=== PATIENT | female | born 1975 | race Caucasian/White ===

== ENCOUNTER 2019-07-10 09:11 | Outpatient (CLI) | payer OTHER, SELFPAY ==
[2019-07-10 09:29] LABS: Basophils Absolute Auto 0.07 K/mm3 (0.00-0.10); Basophils Percent Auto 0.8 % (0.0-1.0); Eosinophils Absolute Auto 0.25 K/mm3 (0.02-0.50); Hematocrit 40.5 % (35.0-49.0); Hemoglobin 13.5 g/dL (12.0-15.0); Immature Granulocyte Absolute 0.02 K/mm3 (0.00-0.00); Immature Granulocyte Percent A 0.2 % (0.0-0.0); Lymphocytes Absolute Auto 2.75 K/mm3 (1.10-4.50); Lymphocytes Percent Auto 32.9 % (18.0-42.0); Mean Corpuscular HGB Conc 33.3 g/dL (32.0-36.0); Mean Platelet Volume 8.6 fl (9.2-11.8); Monocytes Absolute Auto 0.51 K/mm3 (0.10-0.90); Monocytes Percent Auto 6.1 % (2.0-11.0); Neutrophils Absolute Auto 4.8 K/mm3 (1.7-7.2); Platelet Count Result 402 K/mm3 (150-420); Red Blood Count 4.82 M/mm3 (4.20-5.40); Red Cell Distribution Width 13.3 % (11.6-14.4); White Blood Count 8.4 K/mm3 (4.8-10.8)
[2019-07-10 09:39] LABS: Hemoglobin A1C 6.6 % (<5.7)
[2019-07-10 11:05] LABS: Alanine Aminotransferase 23 U/L (14-59); Albumin Level 4.1 g/dL (3.4-5.0); Alkaline Phosphatase 69 U/L (46-116); Anion Gap 16.6 mmol/L (7-16); Aspartate Amino Transferase 17 U/L (15-37); Bilirubin,Total 0.3 mg/dL (0.00-1.00); Blood Urea Nitrogen 12 mg/dL (7-18); Calcium 9.1 mg/dL (8.5-10.1); Carbon Dioxide 23 mmol/L (21-32); Chloride 103 mmol/L (98-108); Cholesterol 167 mg/dL (0-200); Estimated Glomerular Filt Rate > 60; Folic Acid 17.4 ng/mL (8.6->20); Glucose 128 mg/dL (70-99); HDL Direct 39 mg/dL (40-60); LDL Cholesterol Calculated 109 mg/dL (<130); Lipase 97 U/L (73-393); Osmolality Calculated 287 mOsm/kg (285-295); Potassium 4.6 mmol/L (3.5-5.1); Sodium 138 mmol/L (136-145); Thyroid Stimulating Hormone 1.36 uIU/mL (0.36-3.74); Total Protein 7.2 g/dL (6.4-8.2); Triglycerides 94 mg/dL (0-150); Vitamin B12 295 pg/mL (193-986)
[2019-07-10 11:41] LABS: Add Urine Microscopic? YES; Appearance Urine Clear (Clear); Bilirubin Urine Negative (Negative); Blood Urine Negative (Negative); Color Urine Yellow (Yellow); Glucose Urine UA 1+ (Negative); Ketones Urine Negative (Negative); Leukocyte Esterase Ur Negative LEU/UL (Negative); Nitrate Urine Negative (Negative); Protein Urine Negative (Negative); Specific Grav Ur <= 1.005 (1.010-1.020); Urobilinogen Urine 0.2 mg/dL (0.2-1.0); pH Urine 5.5 (5.0-8.0)
[2019-07-10 11:47] LABS: Bacteria Urine None seen /hpf; RBC Urine 0-2 /hpf (0-2); Squamous Epithelial Cell Urine Occasional /hpf (Few); WBC Urine 0-3 /hpf (0-3)
[2019-07-10 11:48] LABS: Creatinine Urine 28.16 mg/dL (40-278); MALB Creatinine Ratio 13.4 mg/g (0-30); Microalbumin Urine Random 3.8 mg/L
== END 2019-07-10 09:12 | disposition home or self-care (01) ==
LOC: CHSLAB 09:15
PROVIDERS: PCP Physician Assistant; Visit Provider Physician Assistant
DX: R10.9 Unspecified abdominal pain (principal); E11.9 Type 2 diabetes mellitus without complications; R53.83 Other fatigue
CPT/HCPCS: 36415; 80053; 80061; 81001; 82043; 82607; 82746; 83036; 83690; 84443; 85025

== ENCOUNTER 2019-07-14 10:02 | Outpatient (CLI) | payer OTHER, SELFPAY ==
--- NOTE | ~2019-07-14 | CT_ITS ---
EXAMINATION: CT abdomen pelvis wo con DATE: 07/14/2019 10:51 INDICATION: Right lower quadrant and left lower quadrant abdominal pain intermittent over past 6 lizzie hs TECHNIQUE: Computed tomography (CT) of the abdomen and pelvis was performed without intravenous contr ast. Automated exposure control and iterative reconstruction technique were employed. Exam dose: 654 .27 mGy-cm total exam DLP. COMPARISON: 08/13/2016 CT abdomen pelvis with IV contrast material FINDINGS: The lung bases are clear. Normal heart size. Coronary artery calcifications. No pericardial or pleural effusion. The liver, gallbladder, bile duct, spleen, pancreas and pancreatic duct and adrenal glands are normal . No renal mass lesion. No urinary tract calculus or hydroureteronephrosis. Normal caliber of the abdominal aorta. No intraperitoneal or retroperitoneal or pelvic mass lesion or adenopathy or ascites. The uterus and adnexal areas are unremarkable. Status post bilateral tubal li gation. Diverticulosis of the colon; no CT evidence of diverticulitis. Normal appendix. No bowel obstruction, bowel wall thickening, pneumatosis or intraperitoneal free air. Small fat-containing umbilical hernia. IMPRESSION: Diverticulosis of the colon; no CT evidence of diverticulitis Normal appendix Reviewed, dictated and finalized at [facility]. Reviewed, dictated and finalized at location B.
== END 2019-07-14 10:03 | disposition home or self-care (01) ==
PROVIDERS: PCP Physician Assistant; Visit Provider Physician Assistant
DX: R10.9 Unspecified abdominal pain (principal)
CPT/HCPCS: 74176

== ENCOUNTER 2020-03-14 08:53 | Outpatient (CLI) | payer OTHER, SELFPAY ==
--- NOTE | ~2020-03-14 | US_ITS ---
EXAMINATION: US right upper quadrant EXAM DATE: 03/14/2020 09:15 INDICATION: R10.11 - Right upper quadrant pain . TECHNIQUE: Multiple grayscale and Doppler images of the abdomen right upper quadrant were obtained (b y a technologist who performed the scan) and subsequently reviewed. Comparison is made to prior exami nation from 08/14/2016. FINDINGS: The pancreatic head and body are normal in appearance. The pancreatic tail is not visualized. The l iver has normal echogenicity and contour. There are no focal liver lesions identified. There is no evidence of intrahepatic biliary duct dilation. Portal venous flow was seen in the hepatopedal, nor mal direction and has normal Doppler waveform. No right-sided hydronephrosis. Common bile duct measures 3 mm, which is normal. The gallbladder wall is normal in thickness, with ex pected amount of distention. No sonographic evidence of pericholecystic fluid. There is no cholelit hiases. Technologist performing exam reports patient did not demonstrate sonographic Bush's sign. Please note that this sign is less reliable in patients who have received pain medication. IMPRESSION: 1. Unremarkable abdominal ultrasound exam. Reviewed, dictated and finalized at location A. 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
[2020-03-14 09:54] LABS: Lipase 83 U/L (73-393)
[2020-03-15 06:31] LABS: Alanine Aminotransferase 25 U/L (14-59); Albumin Level 3.9 g/dL (3.4-5.0); Alkaline Phosphatase 69 U/L (46-116); Anion Gap 9 mmol/L (8-16); Aspartate Amino Transferase 17 U/L (15-37); Bilirubin,Total 0.3 mg/dL (0.00-1.00); Blood Urea Nitrogen 8 mg/dL (7-18); Calcium 9.2 mg/dL (8.5-10.1); Carbon Dioxide 27 mmol/L (21-32); Chloride 106 mmol/L (98-108); Estimated Glomerular Filt Rate > 60; Glucose 116 mg/dL (70-99); Hemoglobin A1C 6.6 % (<5.7); Osmolality Calculated 293 mOsm/kg (285-295); Potassium 4.8 mmol/L (3.5-5.1); Sodium 142 mmol/L (136-145)
== END 2020-03-14 08:54 | disposition home or self-care (01) ==
PROVIDERS: PCP Physician Assistant; Visit Provider Physician Assistant
DX: R10.11 Right upper quadrant pain (principal); E11.9 Type 2 diabetes mellitus without complications; R10.9 Unspecified abdominal pain
CPT/HCPCS: 36415; 76705; 80053; 83036; 83690

== ENCOUNTER 2020-04-05 11:28 | Outpatient (CLI) | payer OTHER, SELFPAY ==
[2020-04-05 12:18] LABS: SARS-CoV-2 Ag Positive (Negative)
== END 2020-04-05 11:29 | disposition home or self-care (01) ==
PROVIDERS: PCP Physician Assistant; Visit Provider Clinical Nurse Specialist
DX: U07.1 COVID-19 (principal)
CPT/HCPCS: 87426

== ENCOUNTER 2020-05-05 15:36 | Outpatient (CLI) | payer OTHER, SELFPAY ==
--- NOTE | ~2020-05-05 | MM_ITS ---
EXAMINATION: MM screening chas BI w ag HISTORY: Screening TECHNIQUE: Craniocaudal and mediolateral oblique 3-D tomosynthesis images were obtained and synthetic 2-D images were generated. CAD analysis was submitted and interpreted. COMPARISON: Comparison to multiple prior studies sequentially, with oldest reviewed study dated 06/2014. BREAST PARENCHYMAL COMPOSITION: The breasts are heterogeneously dense, which may obscure small masses . FINDINGS: There is no evidence of suspicious mass, calcification, or architectural distortion to sugg est malignancy in either breast. There has been no suspicious interval change. IMPRESSION: 1. No mammographic evidence of malignancy. 2. Recommend routine screening mammography in one year. BI-RADS Category 1: Negative Reviewed, dictated and finalized at location A. K CHOPPER HAND
== END 2020-05-05 15:37 | disposition home or self-care (01) ==
LOC: ANHIMG 15:41
PROVIDERS: PCP Physician Assistant; Visit Provider Nurse Practitioner
DX: Z12.31 Encounter for screening mammogram for malignant neoplasm of breast (principal)
CPT/HCPCS: 77063; 77067

== ENCOUNTER 2020-07-28 09:16 | Outpatient (CLI) | payer OTHER, SELFPAY ==
[2020-07-28 09:36] LABS: Hemoglobin A1C 6.4 % (<5.7)
[2020-07-28 10:04] LABS: Hematocrit 40.3 % (35.0-49.0); Hemoglobin 13.1 g/dL (12.0-15.0); Mean Corpuscular HGB Conc 32.5 g/dL (32.0-36.0); Mean Corpuscular Volume 86.1 fL (78.0-102.0); Mean Platelet Volume 8.9 fl (9.2-11.8); Platelet Count Result 414 K/mm3 (150-420); Red Blood Count 4.68 M/mm3 (4.20-5.40); Red Cell Distribution Width 13.3 % (11.6-14.4); White Blood Count 7.5 K/mm3 (4.8-10.8)
[2020-07-28 10:32] LABS: Alanine Aminotransferase 28 U/L (14-59); Albumin Level 3.7 g/dL (3.4-5.0); Alkaline Phosphatase 71 U/L (46-116); Anion Gap 10 mmol/L (8-16); Aspartate Amino Transferase 24 U/L (15-37); Bilirubin,Total 0.4 mg/dL (0.00-1.00); Blood Urea Nitrogen 7 mg/dL (7-18); Calcium 9.3 mg/dL (8.5-10.1); Carbon Dioxide 27 mmol/L (21-32); Chloride 103 mmol/L (98-108); Cholesterol 151 mg/dL (0-200); Estimated Glomerular Filt Rate > 60; Folic Acid 17.1 ng/mL (8.6->20); Glucose 121 mg/dL (70-99); HDL Direct 38 mg/dL (40-60); LDL Cholesterol Calculated 84 mg/dL (<130); Osmolality Calculated 289 mOsm/kg (285-295); Potassium 4.4 mmol/L (3.5-5.1); Sodium 140 mmol/L (136-145); Thyroid Stimulating Hormone 1.31 uIU/mL (0.36-3.74); Total Protein 6.9 g/dL (6.4-8.2); Triglycerides 143 mg/dL (0-150); Vitamin B12 234 pg/mL (193-986)
== END 2020-07-28 09:17 | disposition home or self-care (01) ==
LOC: CHSLAB 09:19
PROVIDERS: PCP Physician Assistant; Visit Provider Physician Assistant
DX: Z00.00 Encounter for general adult medical examination without abnormal findings (principal); E11.9 Type 2 diabetes mellitus without complications
CPT/HCPCS: 36415; 80053; 80061; 82607; 82746; 83036; 84443; 85027

== ENCOUNTER 2020-08-09 08:19 | Inpatient (IN) | payer OTHER, SELFPAY ==
[2020-08-09] VITALS (50 sets, daily range): BP systolic 86–129; BP diastolic 57–96; PULSE 50–100; RESP 12–21; TEMP 36.3–36.8; O2SAT 91–100; BMI 28.3
--- NOTE | ~2020-08-09 | XR_ITS ---
EXAMINATION: XR chest 1V portable EXAM DATE: 08/09/2020 08:58 INDICATION: Upper chest pain, intermittent. Diabetic. TECHNIQUE: Portable AP frontal chest x-ray was obtained. Comparison is made to prior examination from 08/14/2016. FINDINGS: The lungs are clear. There are no pleural effusions. The cardiomediastinal silhouette is within normal limits. There is no pneumothorax suspected. The bones and soft tissues are unremarkab le. IMPRESSION: No acute cardiopulmonary findings. Reviewed, dictated and finalized at location A.
--- NOTE | ~2020-08-09 | CT_ITS ---
EXAMINATION: CTA chest abdomen pelvis EXAM DATE: 08/09/2020 10:20 INDICATION: Chest pain radiating to back, r/o dissection. TECHNIQUE: Spiral CT of the chest, abdomen and pelvis was performed following intravenous injection o f 100 mL Omnipaque 350. Axial, coronal and sagittal images chest, abdomen and pelvis were reviewed. Coronal maximum intensity pixel images of chest reviewed. Maximum intensity projection 3-D reconstru ctions of the aorta were created by the technologist on dedicated workstation. The dose-length produ ct (DLP) for this examination was 1119.04 mGy-cm. The exposure was tailored according to patient siz e (auto mA exposure control), and iterative reconstruction (ASIR) was used as additional dose reducti on technique. Comparison is made to prior examination from 07/14/2019. FINDINGS: ARTERIES: There is normal aortic caliber, no dissection or arteriosclerotic disease. There is no shweta riosclerosis or stenosis of the renal, mesenteric arteries. There is an accessory smaller left renal artery. No pulmonary emboli suspected. CHEST: Dependent subsegmental atelectasis. No confluent consolidation, pneumothorax or pleural effus ion suspected. Tracheobronchial tree is patent. There is no mediastinal, hilar or axillary lymp hadenopathy. Heart normal in size. No evidence of coronary arterial calcification. ABDOMEN PELVIS: There is hepatic steatosis without suspicious focal lesion identified. Spleen, adrena l glands, pancreas are unremarkable. Gallbladder is unremarkable. No biliary obstruction. Portal a nd splenic veins are patent. Kidneys enhance symmetrically. There is no hydronephrosis. The uteru s is unremarkable. Right ovary has dominant follicle. The bladder is unremarkable. There is a retro peritoneal lymph node left side of the pelvic inlet measuring 10 x 12 mm, is unchanged compared to pr evious exam and likely reactive. The appendix is normal. There is mild scattered colonic diverticulosis. There is no adjacent inflamm atory change to suggest diverticulitis. The stomach and small bowel are unremarkable. There is expec brijesh amount of colonic stool. No free intraperitoneal gas. The bones are unremarkable. IMPRESSION: 1. No acute chest, abdomen or pelvis findings. Normal aorta. 2. Mild colonic diverticulosis. 3. Hepatic steatosis. Reviewed, dictated and finalized at location A.
--- NOTE | 2020-08-09 08:41 | ECG_ITS ---
Measurements Intervals [place] Rate: 58 P: 13 UT: 157 QRS: 13 QRSD: 79 T: 58 QT: 436 QTc: 432 Interpretive Statements SINUS BRADYCARDIA LOW QRS VOLTAGE IN PRECORDIAL LEADS BASELINE ARTIFACT- I, III, AVR, AVL BORDERLINE ECG Electronically Signed On 08-09-2020 9:11:22 CDT by Mike Ruiz D.O.
[2020-08-09 08:49] LABS: Basophils Absolute Auto 0.1 K/mm3 (0.0-0.1); Basophils Percent Auto 0.5 % (0.2-1.2); Eosinophils Absolute Auto 0.2 K/mm3 (0-0.3); Eosinophils Percent Auto 2.2 % (0-4.4); Hematocrit 39.9 % (37.0-47.0); Hemoglobin 13.1 g/dL (12.0-15.0); Immature Granulocyte Absolute 0.06 K/mm3 (0.00-0.031); Immature Granulocyte Percent A 0.6 % (0-0.5); Lymphocytes Percent Auto 23.7 % (18.3-44.2); Mean Corpuscular HGB Conc 32.8 g/dl (32-36); Mean Corpuscular Hemoglobin 28.5 pg (26-34); Mean Corpuscular Volume 86.7 fl (80-100); Mean Platelet Volume 9.2 fl (7.4-10.4); Monocytes Absolute Auto 0.6 K/mm3 (0.1-0.6); Monocytes Percent Auto 6.5 % (2.6-8.5); Neutrophils Absolute Auto 6.5 K/mm3 (1.3-6.7); Neutrophils Percent Auto 66.5 % (45.5-73.1); Platelet Count Result 314 k/mm3 (150-375); Red Cell Distribution Width 13.8 % (11.5-14.5); White Blood Count 9.7 K/mm3 (4.5-10.0)
--- NOTE | 2020-08-09 08:54 | ED.CHESTPAIN ---
HPI - Chest Pain General Chief Complaint: Chest Pain Stated Complaint: chest pain since friday Time Seen by Provider: 08/09/20 08:25 Source: patient, RN notes reviewed and old records reviewed Mode of arrival: ambulatory Limitations: no limitations History of Present Illness HPI narrative: This is 45 year old female with history of hypertension, DM who presents for evaluation of chest pain and sob. She developed chest pressure across her chest pain Friday night. She reports her pain was constant until she went to bed on Friday. Her pain restarted on Friday evening after she finished work. She also states her pain moved to right upper chest pain and she is sob. This morning she denies having chest pain but she does reports weakness, dizziness, nausea and shortness of breath. She feels like it is difficulty to take a deep breath. She denies history DVT, PE. Denies leg swelling, calf pain. MD complaint: chest pain Related Data Home Medications Medication Instructions Recorded Confirmed cetirizine 10 mg tablet 10 mg PO DAILY 02/19/19 08/09/20 duloxetine 30 mg capsule,delayed 30 mg PO DAILY 02/19/19 08/09/20 release duloxetine 60 mg capsule,delayed 60 mg PO DAILY 02/19/19 08/09/20 release dulaglutide [Trulicity] 0.75 mg SUBCUT WEEKLY 08/09/20 08/09/20 gabapentin 900 mg PO TID 08/09/20 08/09/20 Allergies Allergy/AdvReac Type Severity Reaction Status Date / Time Bumble Bee Allergy Mild Anaphylaxis Uncoded 08/09/20 08:28 Review of Systems Review of Systems: All systems reviewed & are unremarkable except as noted in HPI and below Constitutional: Constitutional: Reports fatigue Cardiovascular: Cardiovascular: Reports chest pain and Reports radiating jaw, neck or arm pain Respiratory: Respiratory: Denies cough and Reports dyspnea Gastrointestinal: Gastrointestinal: Denies abdominal pain, Denies diarrhea, Reports nausea and Denies vomiting Musculoskeletal: Musculoskeletal: Reports back pain Neurologic: Reports dizziness and Reports weakness PMFSH Past Medical History Medical History (Updated 08/09/20 @ 15:49 by Elisa Jacob MD) Crohn disease Depression Diabetes mellitus Hyperlipidemia Hypertension Surgical History Surgical History H/O tubal ligation Family History Family History Mother Patient's mother is in good health Father Family history of type 1 diabetes mellitus Social History Social History Smoking status: Never smoker Second hand tobacco smoke exposure: No Alcohol intake: never Gender identity (if verbalized by the patient): Female Spiritual care concerns: No Exam Const: General: no acute distress and alert Orientation/consciousness: patient oriented x3 Eyes: EOM: EOMs intact bilaterally Resp: Effort & Inspection: normal respiratory effort and no retractions Auscultation: clear to auscultation bilaterally Cardio: Rate: regular rate Rhythm: regular rhythm Heart sounds: no murmurs GI: GI Palp: Yes Soft to palpation, No Tenderness to palpation present (GI) and No Guarding due to palpation present (GI) Auscultation: normal bowel sounds Back/Spine/Pelvis: Back: no CVA tenderness Skin: General skin exam: normal color Rashes: no rashes Neuro: General: patient oriented x3, moves all extremities and CN's II-XI intact bilaterally Psych: Mental Status: mental status grossly normal Affect: normal affect Course Reevaluation(s) Reevaluation #1: Patient states she feels better. She denies sob. She reports she developed chest pressure after receiving IV contrast. Pain is subsiding. Date: 08/09/20 Time: 10:35 Reevaluation #2: Dr. Sorensen is at bedside. He will take patient to lab head. She has been given aspirin 324 mg on arrival. She will be started on heparin and given metoprolol PO. P
[2020-08-09] MEDS: METOCLOPRAMIDE HCL INJ 10 MG/2 ML VIAL IV PUSH (08:55)
[2020-08-09] MEDS: ASPIRIN 81 MG CHEWABLE TABLET 324 MG PO (08:55)
[2020-08-09] MEDS: LACTATED RINGERS 1,000 ML 999 ML IV CONT ×3 (08:55→09:52)
[2020-08-09 09:13] LABS: Alanine Aminotransferase 39 U/L (4-35); Albumin Level 3.8 g/dL (3.5-5.1); Alkaline Phosphatase 66 U/L (38-126); Aspartate Amino Transferase 41 U/L (14-36); Bilirubin,Total 0.2 mg/dL (0.2-1.3); Lipase 66 U/L (23-300)
[2020-08-09 09:14] LABS: Lactic Acid Reflex 3.2 mmol/L (0.7-2.1)
[2020-08-09 09:24] LABS: INR 0.8
[2020-08-09 09:32] LABS: D Dimer 0.27 ug/mL (<0.48)
[2020-08-09 09:33] LABS: Partial Thromboplastin Time < 20.0 SECONDS (22.3-36.8)
[2020-08-09 09:48] LABS: Anion Gap 8 mmol/L (8-16); Blood Urea Nitrogen 10 mg/dL (7-17); Calcium 8.4 mg/dL (8.4-10.2); Carbon Dioxide 25 mmol/L (22-30); Chloride 103 mmol/L (98-107); Estimated CRCL calculation 95 ml/min; Estimated Glomerular Filt Rate > 60; Glucose 185 mg/dL (65-105); Potassium 4.3 mmol/L (3.4-5.0); Sodium 136 mmol/L (137-145)
[2020-08-09 10:03] LABS: Troponin I 0.302 ng/mL (0.000-0.034)
--- NOTE | 2020-08-09 10:20 | PC.NURSE ---
return from ct. pt continues to c/o chest pain. sr on monitor with depressed st segments.
--- NOTE | 2020-08-09 10:33 | ECG_ITS ---
Measurements Intervals [place] Rate: 84 P: 32 [place]: 161 QRS: 38 QRSD: 84 T: 99 QT: 371 QTc: 440 Interpretive Statements SINUS RHYTHM ST-T WAVE ABNORMALITY IN HIGH LATERAL LEADS- CONSIDER ISCHEMIA ABNORMAL ECG Electronically Signed On 08-09-2020 11:00:00 CDT by Mike Ruiz D.O.
[2020-08-09] MEDS: HEPARIN SODIUM 5,000 UNITS/ML VIAL 4000 UNITS IV PUSH (11:12)
[2020-08-09] MEDS: HEPARIN SOD/D5W 100 UNITS/ML 25,000 UNITS/250 ML BAG 8 UNITS IV CONT (11:13)
[2020-08-09] MEDS: METOPROLOL TARTRATE 50 MG TAB 25 MG PO (11:16)
[2020-08-09] MEDS: NITROGLYCERIN OINTMENT 1 INCH DOSE TRANSDERM (11:17)
--- NOTE | 2020-08-09 11:35 | PC.NURSE ---
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 cp now 11/21. heparin drip infusing without difficulty
[2020-08-09 12:04] LABS: Reflex Lactic Acid Yes or No Add Lactic
--- NOTE | 2020-08-09 12:35 | ECG_ITS ---
Measurements Intervals [place] Rate: 52 P: 32 [place]: 148 QRS: 44 QRSD: 79 T: 78 QT: 472 QTc: 441 Interpretive Statements SINUS BRADYCARDIA BORDERLINE ST-T WAVE ABNORMALITY- ANT/HIGH LAT LEADS BASELINE ARTIFACT- I, III, AVR, AVL, AVF BORDERLINE ECG Electronically Signed On 08-09-2020 16:09:28 CDT by Mike Ruiz D.O.
--- NOTE | 2020-08-09 12:40 | WPDCARDPROC ---
Cardiac Cath Procedure Note Date of procedure:: 08/09/20 Performing physician:: Vince Sorensen MD Indication:: acute coronary syndrome Brief clinical history:: this is a 45-year-old woman with diabetes and dyslipidemia who presents the emergency room with several days of intermittent ischemic sounding chest pain ECG in the emergency room demonstrates some dynamic inferolateral ST segment depression and lateral T-wave inversion. Troponin level was 0.3. In this setting urgent angiography is recommended in be performed at this time Procedure Procedure performed:: left ventriculography coronary angiography PCI (DIONICIO) to the proximal right coronary artery Sedation/Medication given:: fentanyl 25 mg Versed 2 mg case start time 11:55 a.m. case end time 12:20 p.m. 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 Anesthesia was provided with 1% lidocaine infiltrated locally. Using the modified Seldinger technique the femoral artery was punctured and a 6 [place]i vascular sheath was placed. Next I used a 5 [place] angled pigtail catheter to hemodynamics, pullback pressures across the aortic valve and to inject an LV g in the 30 degree US projection. Following this I used a 5 [place] JR4 catheter to inject the right coronary artery and then a 5 [place] FL4 catheter to inject the left coronary artery in multiple projections. The cine angiograms were then reviewed and PCI of the proximal right coronary artery was recommended and carried out as detailed below. Prior to PCI the patient was given 180 mg of oral Brilinta and a bolus and drip of Angiomax for procedural anticoagulation. She had a ready been given aspirin in the emergency department. The intervention was then carried out as detailed below. Following PCI the sheath was sutured into position patient was taken to ICU room 6. For post UT PCI recovery. Procedure was uncomplicated and she left the labor employment associate with no evidence of a groin hematoma. Findings:: Hemodynamics: Central aortic pressure was 104 over 64 left ventricle 104/10 end-diastolic pressure of 20 there is no systolic gradient on pullback across the aortic valve. Left ventricle: The LV is normal in size the infero posterior segment is akinetic the remainder of the LV contracts well the global ejection fraction is 45%. The left main coronary artery is a large caliber vessel with mild plaquing of about 30% stenosis in the distal 3rd of the left main. The left anterior descending is a moderate caliber artery extending down to around the apex. The LAD has an ostial stenosis of at least 70-80% followed by a 95% stenosis in the midportion of the vessel. Distal to this there is no additional significant disease in the LAD. Collateral filling can be seen from the LAD to the RPDA. The circumflex is a moderate caliber artery giving rise to the marginal branch is the circumflex has minimal luminal irregularities but no flow-limiting disease is identified. The right coronary artery is a large caliber vessel dominant to the posterior circulation. It is 100% occluded in the proximal portion with minimal flow distal to the occluded segment. Intervention: The right coronary was engaged using a standard 6 [place]i JR4 guiding catheter the occlusion was easily crossed using a 0.014 BMW coronary guidewire. The lesion was pre-dilated with a 3 x 20 mm emerge PTCA balloon. The vessel then had FAYE 3 flow down to the terminal branches following that balloon inflation. The area of disease was relatively long from the proximal segment of occlusion down into the 2nd portion of the RCA. I then chose to deploy a 3.5 by 35 mm Orsiro drug-eluting stent to the entire area of disease in the RCA
--- NOTE | 2020-08-09 12:49 | PM.IMHP ---
H&P: HPI History of Present Illness Date/Time: 08/09/20 12:49 Chief Complaint: chest pain Narrative: this is a 45-year-old woman I am seeing in the emergency room at the request of the ER physicians because of concern regarding acute coronary syndrome. She is not previously known to have any cardiac problems but is been feeling unwell since Friday afternoon. She describes waxing and waning episodes of pressure-like retrosternal chest pain associated with shortness of breath and this morning had more intense pain associated with shortness of breath and diaphoresis. She finally presented to the emergency room several hours ago. Her initial ECG was essentially normal. She was referred to radiology to rule out a pulmonary embolism when she came back of subsequent EKG was done demonstrating some precordial anterolateral and inferior ST segment changes that which were the initial tracing. Troponin was measured at 0.3. In this setting I was asked to see the patient and consider urgent angiography. She says she has a history of diabetes and Crohn's disease and receives her primary care with Dr. Barton. Review of Systems Review of Systems: ROS unobtainable: Yes unobtainable due to medical condition [facility] Past Medical History Medical History (Updated 08/09/20 @ 08:56 by Elisa Jacob MD) Crohn disease Depression Diabetes mellitus Hyperlipidemia Hypertension Surgical History Surgical History (Updated 08/09/20 @ 08:56 by Elisa Jacob MD) H/O tubal ligation Family History Family History Mother Patient's mother is in good health Father Family history of type 1 diabetes mellitus Social History Social History Smoking status: Never smoker Second hand tobacco smoke exposure: No Alcohol intake: never Meds Home Medications and Allergies Home Medications Medication Instructions Recorded Confirmed Type blood sugar diagnostic #10 each 02/19/19 07/02/20 History blood sugar diagnostic #10 each 02/19/19 07/02/20 History cetirizine 10 mg tablet 10 mg PO DAILY 02/19/19 07/02/20 History duloxetine 30 mg capsule,delayed 30 mg PO DAILY 02/19/19 07/02/20 History release duloxetine 60 mg capsule,delayed 60 mg PO DAILY 02/19/19 07/02/20 History release lancets 28 gauge #25 each 02/19/19 07/02/20 History dulaglutide 0.75 mg/0.5 mL 0.75 mg SUB-Q WEEKLY #2 ml 02/04/20 07/02/20 Rx subcutaneous pen injector olmesartan 20 mg tablet 20 mg PO DAILY #90 tablet 06/28/20 07/02/20 Rx pravastatin 20 mg tablet 20 mg PO DAILY #90 tablet 07/04/20 Rx metformin 500 mg tablet 1,000 mg PO BID #360 tablet 07/24/20 Rx dulaglutide [Trulicity] 0.75 mg SUBCUT WEEKLY 08/09/20 History gabapentin 900 mg PO TID 08/09/20 History Allergies Allergy/AdvReac Type Severity Reaction Status Date / Time Bumble Bee Allergy Mild Anaphylaxis Uncoded 08/09/20 08:28 Vital Signs Vital Signs - 24 hr 08/09/20 08:25 08/09/20 08:36 08/09/20 08:45 Temperature Pulse Rate 61 59 L 60 Respiratory Rate 16 17 13 Blood Pressure 95/70 L Pulse Oximetry 97 08/09/20 08:46 08/09/20 08:49 08/09/20 09:00 Temperature Pulse Rate 61 71 68 Respiratory Rate 16 15 13 Blood Pressure 86/71 L 97/68 L Pulse Oximetry 100 08/09/20 09:01 08/09/20 09:11 08/09/20 09:15 Temperature Pulse Rate 73 64 63 Respiratory Rate 13 12 14 Blood Pressure 89/65 L 87/57 L Pulse Oximetry 99 95 100 08/09/20 09:31 08/09/20 09:45 08/09/20 10:00 Temperature 36.3 C L Pulse Rate 81 81 77 Respiratory Rate 19 13 13 Blood Pressure 90/66 L Pulse Oximetry 96 98 96 08/09/20 10:18 08/09/20 10:21 08/09/20 10:34 Temperature Pulse Rate 81 79 96 Respiratory Rate 12 16 21 H Blood Pressure 118/81 Pulse Oximetry 08/09/20 10:45 08/09/20 11:00 08/09/20 11:01 Temperature Pulse Rate 79 91 91 Respiratory Rate 16 18 12
[2020-08-09] MEDS: SODIUM CHLORIDE 0.9% IV 1,000 ML 125 ML IV CONT (13:22)
--- NOTE | 2020-08-09 13:27 | WPDCNINT ---
Assessment and Plan Assessment and plan (1) Acute coronary syndrome: Code(s): I24.9 - Acute ischemic heart disease, unspecified Status: Acute Assessment and Plan: Patient presented with chest pain Subsequent EKG did demonstrate some ST-T changes in the inferior leads. 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 - Continue aspirin, Brilinta, losartan, metoprolol, statin (2) Diabetes mellitus: Code(s): E11.9 - Type 2 diabetes mellitus without complications Status: Acute Assessment and Plan: Accucheks and SII (3) Essential hypertension: Code(s): I10 - Essential (primary) hypertension Status: Acute Assessment and Plan: Borderline blood pressures, hold antihypertensives for now (4) Crohn's disease: Code(s): K50.90 - Crohn's disease, unspecified, without complications Status: Acute Assessment and Plan: No diarrhea, abdominal pain, N/V at this time Will continue to monitor Additional Plan D/w pt and her , and updated them with her condition and plan of care. Code status: Full Code Critical Care time spent: 41 minutes This dictation may have been done utilizing a voice recognition system. Attempts have been made to correct errors. However, there may be uncorrected grammatical, spelling, and recognition errors present. Due to a high probability of clinically significant, life threatening deterioration, the patient required my highest level of preparedness to intervene emergently and I personally spent this critical care time directly and personally managing the patient. This critical care time included obtaining a history; examining the patient; pulse oximetry; ordering and review of studies; arranging urgent treatment with development of a management plan; evaluation of patient's response to treatment; frequent reassessment; and discussions with other providers. It was exclusive of separately billable procedures and treating other patients and teaching time. Please see Assessment and Plan section and the rest of the note for further information on patient assessment and treatment Vascular Neurologist Consult Note Consult date: 08/09/20 Time Seen: 13:15 Reason for consult: Chest pain, STEMI, status post cardiac catheterization with DIONICIO x1 to proximal RCA, EF 45% HPI: Sonia Abad is a 45 year old female with past medical history of Crohn's disease, depression, diabetes, hyperlipidemia, essential hypertension presented the ED 08/09/2020 with complains of chest pain that started on 08/06, waxing and waning, pressure-like retrosternal pain associated shortness of breath, diaphoresis. In the ED initial EKG was normal, she had CTA chest to rule out pulmonary embolism which was negative. Subsequent EKG did demonstrate some ST-T changes in the inferior leads. 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 Patient also has an LAD ostial stenosis of 70-80% followed by a 95% stenosis in the midportion of the vessel. Patient was transferred to the ICU post cardiac catheterization. Patient seen examined the ICU. Denies any chest pain, SOB, N/V or abdominal pain. Pt states she is thirsty. Pt denies tobacco use, illicit drug use and alcohol use.hemodynamically stable Review of Systems Review of Systems: All systems reviewed & are unremarkable except as noted in HPI and below PMFSH Past Medical History Medical History (Updated 08/09/20 @ 13:41 by Philip Montague MD) Crohn disease Depression Diabetes mellitus Hyperlipidemia Hypertension Surgical History Surgical History (Updated 08/09/20 @ 08:56 by Elisa Jacob MD) H/O tubal ligation Family History Family History (Reviewed 06/28/20 @ 09:48 by Jesus Baires
[2020-08-09 14:04] LABS: Lactic Acid 1.7 mmol/L (0.7-2.1)
[2020-08-09 14:04] LABS: Cholesterol 128 mg/dL (0-200); HDL Direct 37 mg/dL; Triglycerides 145 mg/dL (<150)
[2020-08-09 14:15] LABS: LDL Cholesterol Direct 68 mg/dL
--- NOTE | 2020-08-09 15:03 | ADMGEN ---
This patient, Sonia Abad, was admitted to Intensive Care Unit-6. Patient/family oriented to hospital policies and general routines including ID bracelet, bed and alarms, visiting hours, pain management, procedures, bathroom and other care routines, personal items, smoking policy, room service/diet, and visiting hours. Information on how to activate the Rapid Response Team has been discussed. Patient/Family are encouraged to report perceived risks to care and to ask questions if they do not understand what they are told or what they should do.
--- NOTE | 2020-08-09 15:03 | PM.IMCN ---
Assessment and Plan Assessment and plan (1) Crohn's disease: Code(s): K50.90 - Crohn's disease, unspecified, without complications Status: Chronic Assessment and Plan: Chronic and stable patient denies any diarrhea or abdominal pains or cramps (2) Essential hypertension: Code(s): I10 - Essential (primary) hypertension Status: Acute Assessment and Plan: BP is 99/70 sp heart catheterization continue to monitor. Restart Bp medications, when Bp is better (3) Acute coronary syndrome: Code(s): I24.9 - Acute ischemic heart disease, unspecified Status: Acute Assessment and Plan: Sp heart catherisation, pt found to have total occlusion of proximal RCA status post DIONICIO x1 to proximal RCA, EF was 45% on heart catheterization. Sheath to remove continue to monitor. Treat with aspirin, Brilinta, losartan, metoprolol, statin (4) Diabetes mellitus: Code(s): E11.9 - Type 2 diabetes mellitus without complications Status: Acute Assessment and Plan: Accuchecks, SSI, continue patients home medications (5) Overweight (BMI 25.0-29.9): Code(s): E66.3 - Overweight Status: Chronic Assessment and Plan: Discussion about weight loss and lifestyle changes. (6) Depression: Code(s): F32.9 - Major depressive disorder, single episode, unspecified Status: Inactive Assessment and Plan: Continue antidepressants. HPI Data of Consult Consult date: 08/09/20 Requesting Physician: Vince Sorensen MD Primary Care Provider: Jesus Jones PA-C Consult Narrative Narrative: CC: CHEST PAIN Sonia Abad is a 45 year old female history of HTN, DM and Crohns disease. Pt admitted with chest pain seen by cardiology already sp urgent heart cath. Pt had elevated troponin at 0.3 and abnormal second EKG showing anterolateral and inferior ST segments changes on admission. Pt was found to have total occlusion of proximal RCA status post DIONICIO x1 to proximal RCA, EF was 45% on heart catheterization. Pt is now in ICU post heart cath. Pt states she had severe chest pain this morning like a chest pressure 10/10 associated with sweat and nausea. Pt had been having chest pain on/off since friday night. Pt has a strong family history of CAD, her grandmother and mother has stents and CABG. Pt had CT chest abdomen and pelvis earlier which was negative. Pts Cxr is negative. Labs are good. Hospitalist consulted for medical management for DM, HTN and Crohns. Review of Systems Review of Systems: All systems reviewed & are unremarkable except as noted in HPI and below PMFSH Past Medical History Medical History (Updated 08/09/20 @ 15:27 by Candida Carcamo MD) Crohn disease Depression Diabetes mellitus Hyperlipidemia Hypertension Surgical History Surgical History H/O tubal ligation Family History Family History Mother Patient's mother is in good health Father Family history of type 1 diabetes mellitus Social History Social History Smoking status: Never smoker Second hand tobacco smoke exposure: No Alcohol intake: never Meds Home Medications and Allergies Home Medications Medication Instructions Recorded Confirmed Type cetirizine 10 mg tablet 10 mg PO DAILY 02/19/19 08/09/20 History duloxetine 30 mg capsule,delayed 30 mg PO DAILY 02/19/19 08/09/20 History release duloxetine 60 mg capsule,delayed 60 mg PO DAILY 02/19/19 08/09/20 History release olmesartan 20 mg tablet 20 mg PO DAILY #90 tablet 06/28/20 08/09/20 Rx pravastatin 20 mg tablet 20 mg PO DAILY #90 tablet 07/04/20 08/09/20 Rx metformin 500 mg tablet 1,000 mg PO BID #360 tablet 07/24/20 08/09/20 Rx dulaglutide [Trulicity] 0.75 mg SUBCUT WEEKLY 08/09/20 08/09/20 History gabapentin 900 mg P
[2020-08-09] MEDS: LORazepam (*CRX) 0.5 MG TABLET PO (15:25)
[2020-08-09] MEDS: ONDANSETRON INJ 4 MG/2 ML VIAL IV PUSH (16:17)
[2020-08-09 16:30] LABS: Glucose Point of Care 135 (65-105)
[2020-08-09 17:23] LABS: Hemoglobin A1C 6.8 % (<5.7)
[2020-08-09] MEDS: GABAPENTIN 300 MG CAPSULE 900 MG PO (19:31)
[2020-08-09] MEDS: ACETAMINOPHEN 325 MG TABLET 650 MG PO (20:07)
[2020-08-09] MEDS: METOPROLOL TARTRATE 25 MG TABLET PO (20:08)
[2020-08-09] MEDS: TICAGRELOR 90 MG TABLET PO (20:09)
[2020-08-09 21:01] LABS: Glucose Point of Care 116 (65-105)
[2020-08-09] MEDS: MELATONIN 5 MG TABLET PO (21:59)
[2020-08-10] VITALS (14 sets, daily range): BP systolic 89–131; BP diastolic 62–97; PULSE 66–95; RESP 12–16; TEMP 36.3–36.9; O2SAT 90–99
[2020-08-10 03:58] LABS: Basophils Percent Auto 0.4 % (0.2-1.2); Eosinophils Absolute Auto 0.1 K/mm3 (0-0.3); Eosinophils Percent Auto 1.4 % (0-4.4); Hematocrit 33.3 % (37.0-47.0); Hemoglobin 11.1 g/dL (12.0-15.0); Immature Granulocyte Absolute 0.03 K/mm3 (0.00-0.031); Immature Granulocyte Percent A 0.3 % (0-0.5); Lymphocytes Percent Auto 32.3 % (18.3-44.2); Mean Corpuscular HGB Conc 33.3 g/dl (32-36); Mean Corpuscular Hemoglobin 28.7 pg (26-34); Mean Platelet Volume 8.6 fl (7.4-10.4); Monocytes Absolute Auto 0.7 K/mm3 (0.1-0.6); Monocytes Percent Auto 6.5 % (2.6-8.5); Neutrophils Absolute Auto 6.1 K/mm3 (1.3-6.7); Neutrophils Percent Auto 59.1 % (45.5-73.1); Platelet Count Result 285 k/mm3 (150-375); Red Blood Count 3.87 M/mm3 (4.2-5.4); Red Cell Distribution Width 13.8 % (11.5-14.5); White Blood Count 10.2 K/mm3 (4.5-10.0)
[2020-08-10 04:11] LABS: Anion Gap 0 mmol/L (8-16); Blood Urea Nitrogen 10 mg/dL (7-17); Calcium 8.1 mg/dL (8.4-10.2); Carbon Dioxide 29 mmol/L (22-30); Chloride 106 mmol/L (98-107); Estimated CRCL calculation 95 ml/min; Estimated Glomerular Filt Rate > 60; Glucose 111 mg/dL (65-105); Magnesium 1.9 mg/dL (1.6-2.3); Potassium 3.9 mmol/L (3.4-5.0); Sodium 135 mmol/L (137-145)
--- NOTE | 2020-08-10 05:11 | ECG_ITS ---
Measurements Intervals [place] Rate: 81 P: 41 PA: 168 QRS: 12 QRSD: 83 T: -23 QT: 390 QTc: 455 Interpretive Statements SINUS RHYTHM ST-T WAVE ABNORMALITY IN INFERIOR LEADS- CONSIDER ISCHEMIA BASELINE ARTIFACT- I, II, AVR, AVL ABNORMAL ECG Electronically Signed On 08-10-2020 10:59:25 CDT by Mike Ruiz D.O.
--- NOTE | 2020-08-10 07:45 | WPDINTPN ---
Progress Note: A&P Assessment and Plan (1) Acute coronary syndrome: Code(s): I24.9 - Acute ischemic heart disease, unspecified Status: Acute Assessment and Plan: Patient presented with chest pain Subsequent EKG did demonstrate some ST-T changes in the inferior leads. Initial troponin was 0.3, patient was taken to the laborer [facility] patient was found to have a total occlusion of proximal RCA status post DIONICIO x1 to proximal RCA, EF was 45%. - Patient also has an LAD ostial stenosis of 70-80% followed by a 95% stenosis in the midportion of the vessel. To be worked upon at later date per Cardiology - Continue aspirin, Brilinta, losartan, metoprolol, statin (2) Diabetes mellitus: Code(s): E11.9 - Type 2 diabetes mellitus without complications Status: Acute Assessment and Plan: Accucheks and sliding scale insulin -blood sugars < 140 -hemoglobin A1c is 6.8 (3) Essential hypertension: Code(s): I10 - Essential (primary) hypertension Status: Acute Assessment and Plan: Borderline blood pressures, hold antihypertensives for now (4) Crohn's disease: Code(s): K50.90 - Crohn's disease, unspecified, without complications Status: Chronic Assessment and Plan: Patient states she has not had a flare of Crohn's disease for a while now No diarrhea, abdominal pain, N/V at this time Will continue to monitor Additional Plan D/w pt and her , and updated them with her condition and plan of care. Code status: Full Code Critical Care time spent: 31 minutes This dictation may have been done utilizing a voice recognition system. Attempts have been made to correct errors. However, there may be uncorrected grammatical, spelling, and recognition errors present. Due to a high probability of clinically significant, life threatening deterioration, the patient required my highest level of preparedness to intervene emergently and I personally spent this critical care time directly and personally managing the patient. This critical care time included obtaining a history; examining the patient; pulse oximetry; ordering and review of studies; arranging urgent treatment with development of a management plan; evaluation of patient's response to treatment; frequent reassessment; and discussions with other providers. It was exclusive of separately billable procedures and treating other patients and teaching time. Please see Assessment and Plan section and the rest of the note for further information on patient assessment and treatment Subjective Date/time seen: 08/10/20 07:45 Interval history: Reason for consult: Chest pain, STEMI, status post cardiac catheterization with DIONICIO x1 to proximal RCA, EF 45% 08/10/2020: Patient seen and examined in the ICU, is awake, alert, oriented x3, nonfocal. Hemodynamically stable, adequate output, afebrile. Patient denies any chest pain, shortness of breath, diaphoresis, nausea, vomiting, abdominal pain. States she slept okay at night. No arrhythmias were noted on the tele monitor overnight. Review of Systems Review of Systems: All systems reviewed & are unremarkable except as noted in HPI and below Exam Const: General: comfortable and no acute distress HENMT: Mouth: Yes moist mucous membranes Eyes: Sclera: sclerae normal Pupils: Equal, round and reactive pupils present Neck: Neck: supple Resp: Effort & Inspection: normal respiratory effort Auscultation: clear to auscultation bilaterally Cardio: Rate: regular rate Rhythm: regular rhythm GI: Inspection: non-distended GI Palp: Yes Soft to palpation and No Tenderness to palpation present (GI) Auscultation: normal bowel sounds : Other: deferred Urinary Catheter: Urinary Catheter: urine clear Skin: General skin exam: normal color and no rashes or lesions noted Neuro: Cranial nerves: Yes Equal, round and reactive pupils present Other: Patient awake, alert, oriented x3, nonfocal, fo
[2020-08-10] MEDS: GABAPENTIN 300 MG CAPSULE 900 MG PO ×3 (08:28→17:10)
[2020-08-10] MEDS: LOSARTAN POTASSIUM 12.5 MG TABLET PO (08:28)
[2020-08-10] MEDS: ASPIRIN 81 MG CHEWABLE TABLET PO (08:28)
[2020-08-10] MEDS: DULoxetine HCL 30 MG CAPSULE.DR PO (08:28)
[2020-08-10] MEDS: LORATADINE 10 MG TABLET PO (08:28)
[2020-08-10] MEDS: ROSUVASTATIN 10 MG TABLET 20 MG PO (08:29)
[2020-08-10] MEDS: TICAGRELOR 90 MG TABLET PO ×2 (08:29→20:09)
[2020-08-10] MEDS: METOPROLOL TARTRATE 25 MG TABLET PO ×2 (08:29→20:09)
--- NOTE | 2020-08-10 10:18 | PM.PNCARD ---
Progress Note: A&P Additional Plan - NSTEMI - mild ischemic cardiomyopathy. - hypertension - Crohn's disease - Diabetes mellitus in regards to NSTEMI, continue aspirin Brilinta. patient does have LAD disease that will need to be addressed at some other time the near future per Dr. Sorensen's discretion. - in regards to mild ischemic cardiomyopathy ejection fraction 45%, continue beta-darby and Arb. hopefully that will improve after revascularization. - In regards to family history of premature CAD, continue statin. Will need to do aggressive risk factor modification for CAD. Subjective Date/time seen: Date of [id number]/29/21 10:18 she feels well today. Denies chest pain, shortness of breath. No arrhythmias on telemetry. Review of Systems Constitutional: Constitutional: Denies chills, Denies fever(s) and Denies poor appetite Eyes: Eyes: Denies eye discharge, Denies loss of vision, Denies eye pain and Denies photophobia ENT: Denies dizziness, Denies epistaxis, Denies nasal congestion and Denies sore throat Cardiovascular: Cardiovascular: Denies chest pain, Denies syncope, Denies pedal edema, Denies leg edema, Denies palpitations, Denies dyspnea, Denies dyspnea on exertion and Denies orthopnea Respiratory: Respiratory: Denies cough, Denies dyspnea, Denies dyspnea on exertion and Denies wheezing Gastrointestinal: Gastrointestinal: Denies abdominal pain, Denies diarrhea, Denies nausea and Denies vomiting Genitourinary: Genitourinary: Denies hematuria, Denies genital lesions and Denies dysuria Musculoskeletal: Musculoskeletal: Denies arthralgias, Denies joint swelling and Denies numbness Integumentary/Breasts: Skin/Breast: Denies pruritus and Denies rash Neurologic: Denies dizziness, Denies syncope, Denies loss of vision and Denies numbness Psychiatric: Psychiatric: Denies anxiety and Denies depression Endocrine: Endocrine: Denies cold intolerance, Denies heat intolerance and Denies palpitations Hematologic/Lymphatic: Hematologic/Lymphatic: Denies easy bleeding and Denies easy bruising Allergic/Immunologic: Allergic/Immunologic: Denies urticaria and Denies wheezing Exam Const: General: cooperative, comfortable, no acute distress, alert and awake Nutritional Appearance: well nourished Orientation/consciousness: patient oriented x3 HENMT: Head: normal to inspection, normocephalic and atraumatic Ears: hearing grossly normal bilaterally General nose exam: Normal external nose present, Normal nares present and no nasal discharge noted Face and sinus: normal facial exam and no erythema Mouth: No drooling and No restricted motion Throat: uvula midline Eyes: General: appearance normal, both eyes and all related structures Alignment and Position: position normal Conjunctivae: conjunctivae normal Sclera: sclerae normal Direct Ophthalmoscopy: No photophobia Neck: Neck: normal visual inspection and no JVD Thyroid: thyroid normal Carotids: no bruits Lymphatic: lymphedema not noted Chest: Chest palpation & inspection: normal inspection of the chest and no tenderness Resp: Effort & Inspection: normal respiratory effort and no nasal flaring Auscultation: clear to auscultation bilaterally, no crackles, no rales and no wheezes Cardio: Jugular venous distension: no JVD Rate: regular rate Rhythm: regular rhythm Heart sounds: S1 normal heart sound present, S2 normal heart sound present, no gallops, no murmurs and no rubs GI: Inspection: non-distended GI Palp: No abdominal tenderness and No Soft to palpation Auscultation: normal bowel sounds Rectal Exam: deferred : General: No no CVA tenderness Back/Spine/Pelvis: Back: No no CVA tenderness Cervical Spine: cervical ROM normal Skin: General skin exam: normal color and rashes and/or lesions noted Neuro: General: patient oriented x3 Cranial nerves: No CN's II-XII intact bilaterally Speech: normal speech Motor exam (neuro): no tremors Extrem: General: normal
[2020-08-10 12:17] LABS: Glucose Point of Care 123 (65-105)
[2020-08-10] MEDS: ACETAMINOPHEN 325 MG TABLET 650 MG PO ×2 (13:35→20:11)
--- NOTE | 2020-08-10 14:55 | PM.IMPN ---
Progress Note: A&P Assessment and Plan (1) Crohn's disease: Code(s): K50.90 - Crohn's disease, unspecified, without complications Status: Chronic Assessment and Plan: Chronic and stable patient denies any diarrhea or abdominal pains or cramps 08/10/20 14:55 Patient is a 45-year-old female presented with chest EKG showed ST changes patient was seen by Cardiology and was taken to cardiac clinical lab scientist on 08/09 and showed patient has a severe coronary artery disease and stent was placed however remaining vessels need evaluation at the later date, today patient states feeling much better compared to when she arrived denies any chest shortness of breath palpitation fever or chills, patient is seen by Cardiology and pedicab driver and further recommendation to follow (2) Essential hypertension: Code(s): I10 - Essential (primary) hypertension Status: Acute Assessment and Plan: BP is 99/70 sp heart catheterization continue to monitor. Restart Bp medications, when Bp is better (3) Acute coronary syndrome: Code(s): I24.9 - Acute ischemic heart disease, unspecified Status: Acute Assessment and Plan: Sp heart catherisation, pt found to have total occlusion of proximal RCA status post DIONICIO x1 to proximal RCA, EF was 45% on heart catheterization. Sheath to remove continue to monitor. Treat with aspirin, Brilinta, losartan, metoprolol, statin (4) Diabetes mellitus: Code(s): E11.9 - Type 2 diabetes mellitus without complications Status: Acute Assessment and Plan: Accuchecks, SSI, continue patients home medications (5) Overweight (BMI 25.0-29.9): Code(s): E66.3 - Overweight Status: Chronic Assessment and Plan: Discussion about weight loss and lifestyle changes. (6) Depression: Code(s): F32.9 - Major depressive disorder, single episode, unspecified Status: Inactive Assessment and Plan: Continue antidepressants. 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 Objective Data Vital Signs Vital Signs: Vital Signs - 24 hr 08/09/20 15:40 08/09/20 15:46 08/09/20 15:56 Temperature Pulse Rate 64 60 60 Pulse Rate [Right Pedal (Dorsalis Pedis) Palpation] Respiratory Rate 14 17 16 Blood Pressure 100/75 108/75 103/79 Pulse Oximetry 92 91 94 08/09/20 16:00 08/09/20 16:06 08/09/20 16:16 Temperature Pulse Rate 78 62 64 Pulse Rate [Right Pedal (Dorsalis Pedis) Palpation] Respiratory Rate 18 18 17 Blood Pressure 111/78 108/84 Pulse Oximetry 94 96 94 08/09/20 16:20 08/09/20 16:35 08/09/20 16:50 Temperature Pulse Rate 62 72 72 Pulse Rate [Right Pedal (Dorsalis Pedis) Palpation] Respiratory Rate 16 18 17 Blood Pressure 105/85 109/75 99/69 L Pulse Oximetry 92 92 93 08/09/20 17:05 08/09/20 17:20 08/09/20 17:50 Temperature Pulse Rate 72 73 74 Pulse Rate [Right Pedal (Dorsalis Pedis) Palpation] Respiratory Rate 16 15 16 Blood Pressure 99/73 L 103/74 98/71 L Pulse Oximetry 95 96 94 08/09/20 18:00 08/09/20 18:20 08/09/20 19:05 Temperature Pulse Rate 74 77 Pulse Rate
[2020-08-10 17:12] LABS: Glucose Point of Care 107 (65-105)
[2020-08-10 20:06] LABS: Glucose Point of Care 183 (65-105)
[2020-08-10] MEDS: MELATONIN 5 MG TABLET PO (20:09)
[2020-08-11] VITALS (8 sets, daily range): BP systolic 115–146; BP diastolic 86–99; PULSE 65–98; RESP 14–19; TEMP 36.2–36.5; O2SAT 95–100
[2020-08-11] MEDS: ASPIRIN 81 MG CHEWABLE TABLET PO (09:30)
[2020-08-11] MEDS: LOSARTAN POTASSIUM 12.5 MG TABLET PO (09:31)
[2020-08-11] MEDS: DULoxetine HCL 30 MG CAPSULE.DR PO (09:31)
[2020-08-11] MEDS: METOPROLOL TARTRATE 25 MG TABLET PO (09:31)
[2020-08-11] MEDS: ROSUVASTATIN 10 MG TABLET 20 MG PO (09:31)
[2020-08-11] MEDS: LORATADINE 10 MG TABLET PO (09:32)
[2020-08-11] MEDS: TICAGRELOR 90 MG TABLET PO (09:32)
[2020-08-11] MEDS: GABAPENTIN 300 MG CAPSULE 900 MG PO (09:32)
[2020-08-11 09:37] LABS: Glucose Point of Care 201 (65-105)
[2020-08-11] MEDS: ONDANSETRON INJ 4 MG/2 ML VIAL IV PUSH (11:44)
[2020-08-11] MEDS: HYDROcodone/acetaminophen (*CRX) 5-325 MG TABLET 1 TAB PO (11:44)
--- NOTE | 2020-08-11 12:02 | PM.DS ---
DS: Admitting Diagnosis Admitting Diagnosis Admitting Diagnosis: A acute coronary syndrome, non ST-elevation CA DS: Discharge Diagnosis Discharge Diagnosis (1) Acute coronary syndrome: Code(s): I24.9 - Acute ischemic heart disease, unspecified Status: Acute (2) Non-ST elevation CA (NSTEMI): Code(s): I21.4 - Non-ST elevation (NSTEMI) myocardial infarction Status: Acute DS: Summary Hospital Course Reason for hospitalization: Chest pain, acute coronary syndrome Hospital Course: This is a 45-year-old woman without prior history of heart disease who has diabetes and history of Crohn's disease. She presented to the hospital with a history of intermittent chest pain for several days prior to admission. On the morning of admission she began to experience more significant chest pain with intense diaphoresis. Initial electrocardiogram in the emergency room was essentially unremarkable. After coming back from chest CT 2nd EKG demonstrated some and precordial ST segment depression. Troponin level was elevated at 0.3 and for that reason she was taken emergently to the cardiac catheterization lab. Angiography surprisingly demonstrated 100% acute occlusion of a large dominant proximal right coronary artery. The right coronary did receive significant left to right collateral circulation. PCI of this lesion was recommended carried out successfully deploying a 3.5 x 35 mm Orsiro device to a long area of disease in the right coronary artery resulting in an excellent angiographic result. She has angiographically significant disease in the LAD as well which is not related to the emergency. There appears to be about a 70% ostial stenosis and a mid stenosis of 90-95%. PCI of these lesions is recommended in a staged fashion in the future. The patient was kept in the hospital for the next 2 days without any clinical instability or arrhythmias there was no evidence of congestive heart failure. She will be discharged today on the medical regimen below. I will recommend staged intervention of the LAD in because of the ostial nature of some of this disease I am going to recommend staging this at a hospital other than [facility]. Patient's preference is to have this procedure done at [facility] and I will make those arrangements upon discharge today. Following revascularization in the LAD I will arrange for longitudinal follow-up in my office here at [facility]. Status at Discharge Functional status at discharge: independent ambulation Time Spent with Patient Time attestation: Total time spent providing and/or coordinating discharge services: Time spent: Greater than 30 minutes Exam Const: General: comfortable and no acute distress HENMT: Mouth: Yes moist mucous membranes Eyes: Pupils: Equal, round and reactive pupils present EOM: EOMs intact bilaterally Neck: Neck: supple and no JVD Other: Carotid pulses are normal there are no audible bruits over the neck Resp: Effort & Inspection: normal respiratory effort Auscultation: clear to auscultation bilaterally Cardio: Rate: regular rate Rhythm: regular rhythm Other: PMI nondisplaced no murmur no gallop no rub GI: GI Palp: Yes Soft to palpation Auscultation: normal bowel sounds Skin: General skin exam: normal color Neuro: General: gait normal Extrem: General: normal to inspection DS: Data Data Completed and Pending Labs on day of discharge: Labs from last 24 hours 08/11/20 08/10/20 08/10/20 09:28 20:04 17:07 POC Capillary Glucose 201 H 183 H 107 08/10/20 12:15 POC Capillary Glucose 123 H Discharge Plan Discharge Attending physician on discharge: Vince Sorensen Consulting providers: Edu Koch Zohair H. Discharging Clinician: Vince Sorensen Anticipated Discharge Date/Time: 08/11/20 12:08 Patient Disposition: Home, Self-Care Activity: as tolerated Diet: heart healthy Discharge In
--- NOTE | 2020-08-11 12:39 | PM.IMPN ---
Progress Note: A&P Assessment and Plan (1) Crohn's disease: Code(s): K50.90 - Crohn's disease, unspecified, without complications Status: Chronic Assessment and Plan: 08/11/20 12:39 Patient is a 45-year-old female presented with chest EKG showed ST changes patient was seen by Cardiology and was taken to cardiac rd lab technician on 08/09 and showed patient has a severe coronary artery disease and stent was placed however remaining vessels need evaluation at the later date, today patient states feeling much better compared to when she arrived denies any chest shortness of breath palpitation fever or chills, patient is seen by Cardiology and nurse obgyn and further recommendation to follow 08/11 today patient states feeling much better denies any complaint of chest pain shortness of breath palpitation fever or chills, patient was seen by Teacher Physically Impaired and discharge the patient today to continue with the medical management and will follow-up in the clinic further evaluation and possible repeat cardiac catheterization. (2) Essential hypertension: Code(s): I10 - Essential (primary) hypertension Status: Acute Assessment and Plan: BP is 99/70 sp heart catheterization continue to monitor. Restart Bp medications, when Bp is better (3) Acute coronary syndrome: Code(s): I24.9 - Acute ischemic heart disease, unspecified Status: Acute Assessment and Plan: Sp heart catherisation, pt found to have total occlusion of proximal RCA status post DIONICIO x1 to proximal RCA, EF was 45% on heart catheterization. Sheath to remove continue to monitor. Treat with aspirin, Brilinta, losartan, metoprolol, statin (4) Diabetes mellitus: Code(s): E11.9 - Type 2 diabetes mellitus without complications Status: Acute Assessment and Plan: Accuchecks, SSI, continue patients home medications (5) Overweight (BMI 25.0-29.9): Code(s): E66.3 - Overweight Status: Chronic Assessment and Plan: Discussion about weight loss and lifestyle changes. (6) Depression: Code(s): F32.9 - Major depressive disorder, single episode, unspecified Status: Inactive Assessment and Plan: Continue antidepressants. Subjective Date/time seen: 08/11/20 12:39 08/10 Patient is a 45-year-old female presented with chest EKG showed ST changes patient was seen by Cardiology and was taken to cardiac rd lab technician on 08/09 and showed patient has a severe coronary artery disease and stent was placed however remaining vessels need evaluation at the later date, today patient states feeling much better compared to when she arrived denies any chest shortness of breath palpitation fever or chills, patient is seen by Cardiology and nurse obgyn and further recommendation to follow 08/11 today patient states feeling much better denies any complaint of chest pain shortness of breath palpitation fever or chills, patient was seen by Teacher Physically Impaired and discharge the patient today to continue with the medical management and will follow-up in the clinic further evaluation and possible repeat cardiac catheterization. Review of Systems Review of Systems: All systems reviewed & are unremarkable except as noted in HPI and below Exam Narrative: Exam Narrative: Patient is comfortable, NAD HEENT: eyes are clear and none icteric LUNGS:CTA HEART: RR S1S2 ABD: BS+, Soft and nontender Lower extremities: no edema SKIN: nonjaundiced Neuro: grossly intact. Objective Data Vital Signs Vital Signs: Vital Signs - 24 hr 08/10/20 14:00 08/10/20 16:00 08/10/20 18:00 Temperature 98.4 F Pulse Rate 81 81 95 Respiratory Rate 15 Blood Pressure 131/97 H Pulse Oximetry 99 08/10/20 20:00 08/10/20 20:09 08/10/20 22:00 Temperature 97.4 F L Pulse Rate 92 83 66 Respiratory Rate 14 Blood Pressure 112/81 Pulse Oximetry 96 08/11/20 00:00 08/11/20 02:00 08/11/20 04:00 Temperature 97.7 F Pulse Rate 68 67 65
== END 2020-08-11 13:00 | disposition home or self-care (01) | DRG 247 ==
LOC: ANHED 11:13 → ANHSURGERY 11:17 → ANHCATHLAB 11:24 → ANHSURGERY 12:03 → ANHICU 12:34
PROVIDERS: Family Medicine; Internal Medicine; Admitting Provider Specialist; Emergency Provider General Practice; PCP Physician Assistant; Visit Provider Specialist
PROC: 4A023N7 Measurement of Cardiac Sampling and Pressure, Left Heart, Percutaneous Approach (ICD-10-PCS; CPT 93452; principal; 2020-08-09 11:30)
PROC: 027034Z Dilation of Coronary Artery, One Artery with Drug-eluting Intraluminal Device, Percutaneous Approach (ICD-10-PCS; 2020-08-09 11:30)
DX: I21.4 Non-ST elevation (NSTEMI) myocardial infarction (principal); K50.90 Crohn's disease, unspecified, without complications; E11.9 Type 2 diabetes mellitus without complications; E78.5 Hyperlipidemia, unspecified; I10 Essential (primary) hypertension; I25.10 Atherosclerotic heart disease of native coronary artery without angina pectoris; E66.3 Overweight; Z68.29 Body mass index [BMI] 29.0-29.9, adult; I25.5 Ischemic cardiomyopathy; F32.9 Major depressive disorder, single episode, unspecified
CPT/HCPCS: 36415; 71045; 71275; 74174; 80048; 80061; 80076; 82948; 83036; 83605; 83690; 83735; 84100; 84484; 85025; 85380; 85610; 85730; 93005; 93458; 96361; 96365; 96375; 99291; A9270; C1725; C1769; C1874; C1887; C1894; C9600; J0461; J0583; J1644; J2250; J2405; J2765; J3010; J7030; J7040; J7120; Q9967

== ENCOUNTER 2021-01-15 08:00 | Outpatient (RCR) | payer OTHER, SELFPAY | END 2021-01-15 14:00 | disposition home or self-care (01) | PROVIDERS: PCP Physician Assistant; Visit Provider Specialist | DX: Z98.61 Coronary angioplasty status (principal); I25.2 Old myocardial infarction | CPT/HCPCS: 93798 ==

== ENCOUNTER 2021-04-12 08:55 | Outpatient (CLI) | payer OTHER, SELFPAY ==
[2021-04-12 09:25] LABS: Hemoglobin A1C 7.1 % (<5.7)
[2021-04-12 10:07] LABS: Alanine Aminotransferase 34 U/L (14-59); Albumin Level 3.9 g/dL (3.4-5.0); Alkaline Phosphatase 70 U/L (46-116); Anion Gap 12 mmol/L (8-16); Aspartate Amino Transferase 21 U/L (15-37); Bilirubin,Total 0.2 mg/dL (0.00-1.00); Blood Urea Nitrogen 13 mg/dL (7-18); Calcium 8.8 mg/dL (8.5-10.1); Carbon Dioxide 24 mmol/L (21-32); Chloride 106 mmol/L (98-108); Estimated Glomerular Filt Rate > 60; Glucose 149 mg/dL (70-99); Osmolality Calculated 297 mOsm/kg (285-295); Potassium 4.2 mmol/L (3.5-5.1); Sodium 142 mmol/L (136-145); Total Protein 7.1 g/dL (6.4-8.2); Vitamin B12 739 pg/mL (193-986)
[2021-04-12 10:08] LABS: Folic Acid > 20.0 ng/mL (8.6->20)
== END 2021-04-12 08:56 | disposition home or self-care (01) ==
LOC: CHSLAB 08:57
PROVIDERS: PCP Physician Assistant; Visit Provider Physician Assistant
DX: E11.9 Type 2 diabetes mellitus without complications (principal)
CPT/HCPCS: 36415; 80053; 82607; 82746; 83036

== ENCOUNTER 2022-06-21 17:52 | Emergency (ER) | payer OTHER, SELFPAY ==
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
[2022-06-21 17:52] VITALS: BP 152/92; PULSE 64; RESP 16; TEMP 36.1; O2SAT 100
[2022-06-21 18:02] VITALS: BP 152/92; PULSE 64; RESP 16; TEMP 36.1; O2SAT 100
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
[2022-06-21] MEDS: ACETAMINOPHEN 500 MG TABLET 1000 MG PO (18:49)
[2022-06-21] MEDS: CYCLOBENZAPRINE HCL 10 MG TABLET PO (18:50)
[2022-06-21 19:10] VITALS: BP 129/86; PULSE 80; RESP 18; O2SAT 99
[2022-06-21 20:00] VITALS: BP 112/83; PULSE 67; RESP 18; TEMP 36.6; O2SAT 99
== END 2022-06-21 20:03 | disposition home or self-care (01) ==
PROVIDERS: Emergency Provider Emergency Medicine
DX: R51.9 Headache, unspecified (principal); M54.2 Cervicalgia; M25.551 Pain in right hip; E11.9 Type 2 diabetes mellitus without complications; E78.5 Hyperlipidemia, unspecified; I10 Essential (primary) hypertension; I25.2 Old myocardial infarction; V49.88XA Car occupant (driver) (passenger) injured in other specified transport accidents, initial encounter; Y92.488 Other paved roadways as the place of occurrence of the external cause
CPT/HCPCS: 70450; 72125; 99284; A9270

== ENCOUNTER 2022-12-25 15:57 | Outpatient (CLI) | payer OTHER, SELFPAY ==
--- NOTE | ~2022-12-25 | CT_ITS ---
EXAMINATION: CT cervical spine wo con DATE: 12/25/2022 16:14 INDICATION: Neck pain. TECHNIQUE: Computed tomography (CT) of the cervical spine was performed without intravenous contrast. Automated exposure control and iterative reconstruction technique were employed. The dose-length pro duct was 308.77 mGy-cm. COMPARISON: CT cervical spine 06/21/2022 FINDINGS: There is 6 degrees dextrocurvature of cervicothoracic spine. There is kyphosis of cervical spine. Vertebral body heights are normal. There is mildly decreased disc height at C5-C6. The followi ng disc levels are specifically discussed: C2-C3: There is no uncovertebral joint osteoarthritis. There is mild bilateral facet joint osteoarthr itis. There is no neural foraminal stenosis. There is no central canal stenosis. C3-C4: There is no uncovertebral joint osteoarthritis. There is mild right and moderate left facet lui int osteoarthritis. There is no neural foraminal stenosis. There is no central canal stenosis. C4-C5: There is no uncovertebral joint osteoarthritis. There is no facet joint osteoarthritis. There is no neural foraminal stenosis. There is no central canal stenosis. C5-C6: There is mild bilateral uncovertebral joint osteoarthritis. There is mild bilateral facet join t osteoarthritis. There is no neural foraminal stenosis. There is mild central canal stenosis. C6-C7: There is no uncovertebral joint osteoarthritis. There is no facet joint osteoarthritis. There is no neural foraminal stenosis. There is no central canal stenosis. C7-T1: There is no uncovertebral joint osteoarthritis. There is severe right and mild left facet join t osteoarthritis. There is mild right neural foraminal stenosis. There is no central canal stenosis. IMPRESSION: 1. Mild cervical spondylosis, stable from 06/21/2022. Reviewed, dictated and finalized at location A.
== END 2022-12-25 15:58 | disposition home or self-care (01) ==
LOC: ANHIMG 16:04
PROVIDERS: PCP Physician Assistant; Visit Provider Physician Assistant
DX: M43.02 Spondylolysis, cervical region (principal)
CPT/HCPCS: 72125

== ENCOUNTER 2024-11-03 16:49 | Emergency (ER) | payer OTHER, SELFPAY ==
--- NOTE | ~2024-11-03 | XR_ITS ---
HISTORY: pain and swelling after fall COMPARISON: None TECHNIQUE: 3 views of the left wrist were performed. FINDINGS: No acute fracture is identified. The carpal arcs are intact. Trace radiocarpal joint space narrowing with sclerosis of the distal radius is present. The remaining visualized joint spaces are otherwise preserved. Trace negative ulnar variance is detected. Bone mineralization is age-appropriate. Focal soft tissue swelling along the ulnar surface of the distal shaft of the ulna. No radiopaque foreign body is identified. IMPRESSION: Soft tissue swelling, without acute fracture. Reviewed, dictated and finalized at location A.
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
[2024-11-03 17:05] VITALS: BP 110/77; PULSE 80; RESP 16; TEMP 36.7; O2SAT 100
== END 2024-11-03 17:51 | disposition home or self-care (01) ==
PROVIDERS: Emergency Provider Nurse Practitioner Family; PCP Internal Medicine
DX: S60.212A Contusion of left wrist, initial encounter (principal); S63.502A Unspecified sprain of left wrist, initial encounter; W18.09XA Striking against other object with subsequent fall, initial encounter; E11.9 Type 2 diabetes mellitus without complications; Z79.85 Long-term (current) use of injectable non-insulin antidiabetic drugs; E78.5 Hyperlipidemia, unspecified; I10 Essential (primary) hypertension; I25.2 Old myocardial infarction; K50.90 Crohn's disease, unspecified, without complications; Z95.5 Presence of coronary angioplasty implant and graft
CPT/HCPCS: 73110; 99213; G0463